=== PATIENT | male | born 2000 | race Caucasian/White ===

== ENCOUNTER 2021-01-11 17:36 | Outpatient (CLI) | payer OTHER ==
[2021-01-12 08:18] LABS: SARS-CoV-2 PCR by NAA Not Detected (NotDetected)
[2021-01-13 12:12] VITALS: BMI 38.9
== END 2021-01-11 17:37 | disposition home or self-care (01) ==
LOC: CSHLAB 17:36
PROVIDERS: ATTEND Internal Medicine Gastroenterology
DX: Z01.812 Encounter for preprocedural laboratory examination (principal); Z20.822 Contact with and (suspected) exposure to COVID-19
CPT/HCPCS: U0003; U0005

== ENCOUNTER → 2021-01-14 | Day surgery (SDC) | payer OTHER ==
[~2021-01-14] MED LIST: Lidocaine 1% MPF 2 ML VIAL ONE; Lidocaine 1% PF 5 ML VIAL ONE; PROPOFOL 20 ML ONE
== END ==
LOC: CSHSDC 06:53
PROVIDERS: ATTEND Internal Medicine Gastroenterology
PROC: 0DJ08ZZ Inspection of Upper Intestinal Tract, Via Natural or Artificial Opening Endoscopic (ICD-10-PCS; principal; 2021-01-14)
DX: R10.9 Unspecified abdominal pain (principal); F32.9 Major depressive disorder, single episode, unspecified; F90.9 Attention-deficit hyperactivity disorder, unspecified type
CPT/HCPCS: J2704